=== PATIENT | female | born 2000 | race Native Hawaiian/Other Pacific Islander ===

== ENCOUNTER 2024-06-05 11:56 | Outpatient (AMB) | payer OTHER, SELFPAY ==
--- NOTE | 2024-06-05 11:57 | MHC.PC.OV ---
Vital Signs 06/05/24 11:58 Height 5 ft 2 in Weight 149 lb BMI 27.2 BP 122/70 Blood Pressure Location Lt brachial Position Sitting Pulse 95 Pulse Source Pulse Oximeter Pulse Oximetry (%) 97 Oxygen Delivery Method Room Air Intake Visit Reasons: est care/requesting pe Allergies amoxicillin Allergy (Intermediate, Verified 06/05/24 12:01) Hives peanut Allergy (Intermediate, Verified 06/05/24 12:01) Anaphylaxis Tobacco use date assessed: 06/05/24 Dental Screening Dental Screen Date: 06/05/24 Did you have a dental visit in the last 12 months?: Yes Did you have a dental problem in the last 6 months where you did not have access to dental care?: No Was dental information given to patient?: Patient has dentist HPI HPI Comments History of Present Illness Details 24-year-old female presents to establish care and have a physical exam. I previously saw her at [facility] years ago. 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 She is . She just started trying to conceive. She has a gynecology appointment in July. Today we reviewed ovulation test kits. I also recommended she start a vitamin. She endorses some fatigue, a little more so than usual for her. She has some trouble falling asleep, and she is going to try melatonin and magnesium. She is able to stay asleep. 2 maternal aunts had breast cancer in their 40s. Mother related to diabetes complications, but she also had some type of gastric cancer as did the patient's grandmother on her mother's side. Patient is referred to genetic counseling. Patient unsure when she last had Tdap. Deferred today. Patient reports having flu vaccine this season. She will sign a release for records. ROS: Constitutional: No unexplained weight loss, fever, chills, fatigue or night sweats. Eyes: No vision changes, blurry vision, double vision, eye pain, eye redness, eye discharge. ENT: No hearing loss, sneezing, congestion, runny nose or sore throat. Respiratory: No shortness of breath, cough or sputum production. Cardiovascular: No chest pain, chest pressure or chest discomfort. No palpitations or pedal edema. Gastrointestinal: No anorexia, nausea, vomiting or diarrhea. No abdominal pain or blood in stool. Genitourinary: No dysuria, hematuria, urinary frequency. Neurologic: No headache, dizziness, syncope, unilateral weakness, ataxia, numbness or tingling in the extremities. Musculoskeletal: No muscle pain, back pain, joint pain or swelling. Hematologic/Lymphatics: No bleeding or bruising. No painful lymph nodes. Skin: No rash or itching. Endocrine: No cold or heat intolerance. No polyuria or polydipsia. Psychiatric: No depression or anxiety. No SI/HI. Physical exam: Constitutional: Alert, in no distress. Head: Normocephalic. Eyes: Pupils are equal, round and reactive to light. Extraocular muscles intact. Ear, Nose and Throat: Canals clear. TMs normal. Normal nasal mucosa. No nasal discharge. No oral lesions. Neck: Supple, Full range of motion. No lymphadenopathy. No palpable thyroid masses. Respiratory: Clear to auscultation. Cardiovascular: S1 S2 regular. No murmurs. Gastrointestinal: Abdomen soft, non-tender, non-distended. Normal bowel sounds. No palpable masses. Neurologic: No focal neurological deficits. Symmetric patellar reflexes. Moves all extremities spontaneously. Sensation intact bilaterally. Skin: No rashes or lesions. Musculoskeletal: No gross deformities. Normal range of motion. Extremities: Warm and well perfused. No clubbing, cyanosis or edema. 3+ peripheral pulses bilaterally. Psychiatric: Normal mood and affect [facility] Medical History (Updated 06/05/24 @ 13:24 by CINDY Benito) Routine physical examination IBS (irritable colon syndrome) Fatigue Screening for cardiovascular condition Surgical History (Updated 06/05/24 @ 12:02 by Hannah Witt CMA) No pertinent past surgical history Family History (Updated 06/05/24 @ 12:06 by Hannah Witt CMA) Mother Diabetes Paternal Grandmother Breast cancer Maternal Aunt Breast cancer Social History (Updated 06/05/24 @ 12:02 by Hannah Witt CMA) Household Members: Spouse Housing: Apartment Alcohol intake: never Patient Tobacco Use Status: Never used Tobacco e-Cigarette/Vaping Use: Never Used Use of substances other than those prescribed or required for medical reasons: No service: No Current occupational status: employed Current occupation: Registration and finance Cognitive needs: No Hearing needs: No Vision needs: Yes Questionnaire PHQ-9 Over the last 2 weeks, how often have you been bothered by any of the following problems? 1. Little interest or pleasure in doing things: not at all 2. Feeling down, depressed, or hopeless: not at all 3. Trouble falling or staying asleep, or sleeping too much: not at all 4. Feeling tired or having little energy: not at all 5. Poor appetite or overeating: not at all 6. Feeling bad about yourself - or that you are a failure or have let yourself or your family down: not at all 7. Trouble concentrating on things, such as reading the newspaper or watching television: not at all 8. Moving or speaking so slowly that other people could have noticed. Or the opposite - being so fidgety or restless that you have been moving around a lot more than usual: not at all 9. Thoughts that you would be better off or of hurting yourself in some way: not at all Total score: 0 Depression Screening Interpretation: Negative Depression Screening Done: Yes 31249 - PHQ-9 Billing: Yes Source: Developed by Drs. Luis Carbajal, Heather Valiente, Trey Araujo and colleagues, with an educational ronnie from [employer]. Thrive Questionnaire Date Thrive assessed: 06/05/24 I am a: Patient What is your living situation today?: I have a steady place to live Within the past 12 months, did the food you bought not last and you didn't have the money to get more?: Never true Within the past 12 months, did you worry whether your food would run out before you got money to buy more?: Never true Do you have trouble paying for medicines?: No Do you have trouble getting transportation to medical appointments?: No Do you have trouble paying your heating and electricity bill?: No Do you have trouble taking care of your child, family member or friend?: No Do you have trouble with day-to-day activities such as bathing, preparing meals, shopping, managing finances, etc.?: No Are you currently unemployed and looking for a job?: No Are you interested in more education?: No THRIVE Score: 0 AUDIT C Alcohol Use Questionnaire (AUDIT-C) 1. How often do you have a drink containing alcohol?: Never 3. How often do you have six or more drinks on one occasion?: Never Total Score: 0 HI-7 AMB Questionnaire HI-7 Date HI - 7 assessed: 06/05/24 Feeling nervous, anxious, or on edge: 0 = Not at all Not being able to stop or control worryin = Not at all Worrying too much about different things: 0 = Not at all Trouble relaxin = Not at all Being so restless that it is hard to sit still: 0 = Not at all Becoming easily annoyed or irritable: 0 = Not at all Feeling afraid as if something awful might happen: 0 = Not at all Total HI-7 score (0-4 normal; 5-9 mild; 10-14 moderate; 15-21 severe): 0 Source: Developed by Drs. Luis Carbajal, Heather Valiente, Trey Araujo and colleagues, with an educational ronnie from [employer]. HI-7 Assessment Billing HI-7 Assessment Tool: HI-7 Assessment 25156 Physical exam (Primary Care) Vital Signs: Last Vital Signs Pulse 95 06/05/24 11:58 BP 122/70 06/05/24 11:58 Pulse Ox 97 06/05/24 11:58 Oxygen Delivery Method Room Air 06/05/24 11:58 BMI result Body Mass Index 27.2 Tobacco/Smoking Status: Tobacco use Status Tobacco use date assessed 06/05/24 06/05/24 12:06 Patient Tobacco Use Status Never used Tobacco 06/05/24 12:06 e-Cigarette/Vaping Use Never Used 06/05/24 12:06 PHQ-9: PHQ-9 Score PHQ-9: Total score 0 06/05/24 12:21 Depression Screening Interpretation: Negative Thrive Assessment: Date of Thrive Assessment Date Thrive assessed 06/05/24 06/05/24 12:06 Coding Level of Care Code New Pt Prev Care 18-39yr([id number] Diagnoses Routine physical examination Z00.00 Fatigue R53.83 Additional Codes HI-7 Assessment Billing - HI-7 Assessment Tool: HI-7 Assessment 66216 ([id number]) PHQ-9 - 65087 - PHQ-9 Billing: Yes ([id number]) Assessment & Plan Assessment & Plan (1) Routine physical examination: Code(s): Z00.00 - Encounter for general adult medical examination without abnormal findings Category: Medical Plan: Patient is seen today for a routine physical. As part of this visit we reviewed the following issues, which are considered and essential part of preventative health in this age group: - Breast Cancer screening - Annual Weight Analyst exam - Screening for colon cancer - Blood pressure screening annually - Cholesterol screening - Osteoporosis prevention including calcium/vitamin D intake, weight bearing exercise & smoking cessation - Nutritional and exercise counseling - Counseling of injury prevention including fire prevention, smoke alarms and seat belt usage - Screening for depression - Prevention of and/or testing for infectious diseases - Education about skin cancer - Recommendations about immunizations - Recommendation of an eye exam - Screening for substance abuse - Genetic cancer risk screening - referred (2) Fatigue: Code(s): R53.83 - Other fatigue Category: Medical Plan: Check labs. Plan F/u 1 year annual physical. Orders: Orders Comprehensive Met. Panel Today R53.83 - Other fatigue, Z13.6 - Encounter for screening for cardiovascular disorders Lipid Panel Today E78.5 - Hyperlipidemia, unspecified, R53.83 - Other fatigue, Z13.6 - Encounter for screening for cardiovascular disorders IRON PROFILE Today R53.83 - Other fatigue Ferritin Today R53.83 - Other fatigue TSH reflex Free T4 Today R53.83 - Other fatigue, Z13.6 - Encounter for screening for cardiovascular disorders Complete Blood Count Auto Diff Today R53.83 - Other fatigue, Z13.6 - Encounter for screening for cardiovascular disorders Vitamin D 25-OH (D2 and D3) Today M85.80 - Other specified disorders of bone density and structure, unspecified site, R53.83 - Other fatigue, Z13.6 - Encounter for screening for cardiovascular disorders
[2024-06-05 11:58] VITALS: BP 122/70; PULSE 95; O2SAT 97; BMI 27.2
== END 2024-06-05 12:55 | disposition home or self-care (01) ==
PROVIDERS: PCP Physician Assistant Medical; Visit Provider Physician Assistant Medical
DX: Z00.00 Encounter for general adult medical examination without abnormal findings (principal); R53.83 Other fatigue

== ENCOUNTER → 2024-06-05 11:56 | Outpatient (BNVA) | payer OTHER, SELFPAY | LOC: CF 06-06 09:55 | PROVIDERS: PCP Physician Assistant Medical; Visit Provider Physician Assistant Medical | DX: Z00.00 Encounter for general adult medical examination without abnormal findings (principal); R53.83 Other fatigue | CPT/HCPCS: 96127; 99385 ==

== ENCOUNTER 2024-06-06 09:56 | Outpatient (REF) | payer OTHER, SELFPAY ==
[2024-06-06 10:13] LABS: MANUAL DIFF FLAG NO
[2024-06-06 10:15] LABS: Basophils Absolute Auto 0.1 X10*3/uL (0.0-0.2); Basophils Percent Auto 1.4 % (0-2); Eosinophils Absolute Auto 1.1 X10*3/uL (0.0-0.4); Hematocrit 37.6 % (37.0-47.0); Hemoglobin 12.1 g/dl (12.0-16.0); Imm Gran Abs Auto 0.02 X10*3/uL (0.00-0.03); Imm Gran Pct Auto 0.3 % (0.0-0.4); Lymphocytes Absolute Auto 1.8 X10*3/uL (1.2-4.9); Lymphocytes Percent Auto 25.5 % (20-40); Mean Corpuscular HGB Conc 32.2 g/dl (31.0-35.0); Mean Corpuscular Hemoglobin 25.6 pg (27.0-33.0); Mean Corpuscular Volume 79.5 fL (80.0-98.0); Mean Platelet Volume 11.8 fL (9.4-12.3); Monocytes Absolute Auto 0.4 X10*3/uL (0.1-1.2); Monocytes Percent Auto 5.7 % (2-11); Neutrophils Absolute Auto 3.7 x10*3/uL (2.0-8.3); Neutrophils Percent Auto 52.1 % (45-73); Platelet Count 279 X10*3/uL (160-400); Red Blood Count 4.73 X10*6/uL (4.20-5.50)
[2024-06-06 10:59] LABS: Alanine Aminotransferase 17 U/L (0-31); Albumin Level 4.6 g/dL (3.5-5.0); Alkaline Phosphatase 32 U/L (39-117); Anion Gap 12 (12-20); Aspartate Amino Transferase 18 U/L (5-31); Bilirubin Total 0.4 mg/dL (0.0-1.0); Blood Urea Nitrogen 12 mg/dL (9-16); Calcium 9.3 mg/dL (8.4-10.2); Carbon Dioxide 25 mmol/L (22-29); Chloride 109 mmol/L (96-108); Cholesterol 110 mg/dL (<200); Estimated Glomerular Filt Rate > 60; Glucose Random 86 mg/dL (60-115); HDL Cholesterol 32 mg/dL (>40); Iron 82 mcg/dL (30-160); LDL Cholesterol Calculated 67 mg/dL (<100); Percent Iron Saturation 29 % (15-50); Potassium 3.9 mmol/L (3.3-5.1); Sodium 142 mmol/L (135-145); Total Iron Binding Capacity 284 mcg/dL (228-428); Total Protein 8.4 g/dL (6.5-8.0); Triglycerides 56 mg/dL (<150); Unsaturated Iron Binding 202 ug/dL
[2024-06-06 11:15] LABS: Ferritin 41 ng/mL (10-122); TSH reflex Free T4 1.93 uIU/mL (0.32-4.0)
[2024-06-10 16:24] LABS: Vitamin D 25-OH, D2 <4 ng/mL; Vitamin D 25-OH, D3 21 ng/mL; Vitamin D 25-OH, Total 21 ng/mL (30-100)
== END 2024-06-06 09:57 | disposition home or self-care (01) ==
LOC: HO.LAB 09:56
PROVIDERS: PCP Physician Assistant Medical; Visit Provider Physician Assistant Medical
DX: R53.83 Other fatigue (principal); Z13.6 Encounter for screening for cardiovascular disorders; M85.80 Other specified disorders of bone density and structure, unspecified site; E78.5 Hyperlipidemia, unspecified
CPT/HCPCS: 36415; 80053; 80061; 82306; 82728; 83540; 84443; 85025

== ENCOUNTER 2024-09-15 10:23 | Outpatient (REF) | payer OTHER, SELFPAY ==
[2024-09-15 10:34] LABS: MANUAL DIFF FLAG NO
[2024-09-15 12:08] LABS: Basophils Absolute Auto 0.1 X10*3/uL (0.0-0.2); Basophils Percent Auto 1.4 % (0-2); Eosinophils Absolute Auto 0.5 X10*3/uL (0.0-0.4); Eosinophils Percent Auto 7.2 % (0-4); Hematocrit 40.9 % (37.0-47.0); Hemoglobin 13.3 g/dl (12.0-16.0); Imm Gran Abs Auto 0.01 X10*3/uL (0.00-0.03); Imm Gran Pct Auto 0.1 % (0.0-0.4); Lymphocytes Absolute Auto 1.7 X10*3/uL (1.2-4.9); Lymphocytes Percent Auto 24.4 % (20-40); Mean Corpuscular HGB Conc 32.5 g/dl (31.0-35.0); Mean Corpuscular Hemoglobin 25.9 pg (27.0-33.0); Mean Corpuscular Volume 79.7 fL (80.0-98.0); Mean Platelet Volume 12.7 fL (9.4-12.3); Monocytes Absolute Auto 0.4 X10*3/uL (0.1-1.2); Monocytes Percent Auto 5.2 % (2-11); Neutrophils Absolute Auto 4.3 x10*3/uL (2.0-8.3); Neutrophils Percent Auto 61.7 % (45-73); Platelet Count 291 X10*3/uL (160-400); Red Blood Count 5.13 X10*6/uL (4.20-5.50); Red Cell Distribution Width 13.7 % (11.0-16.0); White Blood Count 6.9 X10*3/uL (4.8-10.8)
[2024-09-15 12:48] LABS: Alanine Aminotransferase 27 U/L (0-31); Alkaline Phosphatase 37 U/L (39-117); Anion Gap 9 (12-20); Aspartate Amino Transferase 22 U/L (5-31); Bilirubin Total 0.2 mg/dL (0.0-1.0); Blood Urea Nitrogen 12 mg/dL (9-16); Calcium 9.9 mg/dL (8.4-10.2); Carbon Dioxide 28 mmol/L (22-29); Chloride 108 mmol/L (96-108); Estimated Glomerular Filt Rate > 60; Glucose Random 92 mg/dL (60-115); Iron 74 mcg/dL (30-160); Percent Iron Saturation 25 % (15-50); Sodium 141 mmol/L (135-145); Total Iron Binding Capacity 293 mcg/dL (228-428); Total Protein 8.1 g/dL (6.5-8.0); Unsaturated Iron Binding 219 ug/dL
[2024-09-15 13:08] LABS: Ferritin 46 ng/mL (10-122); HCG Quantitative < 2 mIU/mL; TSH reflex Free T4 1.56 uIU/mL (0.32-4.0)
[2024-09-15 13:24] LABS: Folate 12.3 ng/mL (> or = 4.0); Vitamin B12 630 pg/mL (200-900)
[2024-09-19 14:49] LABS: Lyme Abs Screen <0.90 index
[2024-09-21 15:58] LABS: Vitamin D 25-OH, D2 <4 ng/mL; Vitamin D 25-OH, D3 32 ng/mL; Vitamin D 25-OH, Total 32 ng/mL (30-100)
== END 2024-09-15 10:24 | disposition home or self-care (01) ==
LOC: HO.LAB 10:23
PROVIDERS: PCP Physician Assistant Medical; Visit Provider Physician Assistant Medical
DX: N92.6 Irregular menstruation, unspecified (principal); D64.9 Anemia, unspecified; R53.83 Other fatigue; D72.10 Eosinophilia, unspecified; E55.9 Vitamin D deficiency, unspecified; M85.80 Other specified disorders of bone density and structure, unspecified site
CPT/HCPCS: 36415; 80053; 82306; 82607; 82728; 82746; 83540; 84443; 84702; 85025; 86617; 86618

== ENCOUNTER 2025-01-09 13:34 | Outpatient (REF) | payer OTHER, SELFPAY ==
[2025-01-14 14:58] LABS: Vitamin D 25-OH, D2 <4 ng/mL; Vitamin D 25-OH, D3 32 ng/mL; Vitamin D 25-OH, Total 32 ng/mL (30-100)
== END 2025-01-09 13:35 | disposition home or self-care (01) ==
LOC: HO.LAB 13:34
PROVIDERS: PCP Physician Assistant Medical; Visit Provider Physician Assistant Medical
DX: R53.83 Other fatigue (principal); E55.9 Vitamin D deficiency, unspecified; M85.80 Other specified disorders of bone density and structure, unspecified site
CPT/HCPCS: 36415; 82306; 84443

== ENCOUNTER 2025-02-01 15:44 | Outpatient (AMB) | payer OTHER, SELFPAY ==
--- NOTE | 2025-02-01 15:48 | A.OFFPC_ITS ---
Vital Signs 02/01/25 15:52 Height 5 ft 2 in Weight 152 lb 4 oz BMI 27.8 BP 114/68 Blood Pressure Location Rt brachial Position Sitting Respiration 14 Pulse 113 H Pulse Source Pulse Oximeter Temp 98.3 F Temp Source Temporal Artery Scan Pulse Oximetry (%) 95 Oxygen Delivery Method Room Air Intake Visit Reasons: [facility] paperwork Intake Note: Abbey presents in the office today to discuss [employer] Paperwork. Allergies amoxicillin Allergy (Intermediate, Verified 02/01/25 15:49) Hives peanut Allergy (Intermediate, Verified 02/01/25 15:49) Anaphylaxis Medication List - Last Reconciled 02/01/25 by CINYD Benito albuterol sulfate 90 mcg/actuation 2 inhalations inhalation .every 4 hours PRN 30 days cholecalciferol (vitamin D3) 25 mcg PO DAILY epinephrine (EpiPen) 0.3 mg (0.3 mL) IM Q10M PRN fexofenadine 180 mg PO DAILY sertraline 50 mg PO .evening Tobacco use date assessed: 02/01/25 Dental Screening Dental Screen Date: 02/01/25 Did you have a dental visit in the last 12 months?: Yes Did you have a dental problem in the last 6 months where you did not have access to dental care?: No Was dental information given to patient?: Patient has dentist HPI HPI Comments History of Present Illness Details 24-year-old female presents for forms, a nxiety, hives. Hives - more than 1 month - daily or nearly daily symptoms - associated with itching - hives come and go all over the body in cluding the face - Moved to a new apt and hives started a week later - patient questions underlying stress as a trigger - Allergy to peanuts- no known exposures . Needs epipen refilled - No recent illness - Lona alleviates symptoms - Denies angioedema, anaphylaxis Anxiety - started after her mother f rom diabetes complication several years ago - She has used sick time for flares - Impacts focus, sleep, energy, work - She wants to try anxiety medication - needs fmla forms done for work - christi tration at [facility] ED Patient reports exercise induced wheezing and cough and would dickson an inhaler. TSH normal. ROS: Constitutional: No unexplained weight loss, fever, chills or night sweats. Eyes: No vision changes, blurry vision, double vision, eye pain, eye redness, eye discharge. ENT: No hearing loss, sneezing, congestion, runny nose or sore throat. Respiratory: No shortness of breath or sputum production. Cardiovascular: No chest pain Hematologic/Lymphatics: No bleeding or bruising. No painful lymph nodes. Skin: see HPI Endocrine: No cold or heat intolerance. No polyuria or polydipsia. Psychiatric: No depression. No SI/HI. Physical exam: Constitutional: Alert, in no distress. Eyes: Pupils are equal, round and reactive to light. Extraocular muscles intact. Ear, Nose and Throat: Canals clear. TMs normal. Normal nasal mucosa. No nasal discharge. No oral lesions. Neck: Supple, Full range of motion. No lymphadenopathy. No palpable thyroid masses. Respiratory: Clear to auscultation. Cardiovascular: S1 S2 regular. No murmurs. Skin: No rashes or lesions. Extremities: Warm and well perfused. No clubbing, cyanosis or edema. Psychiatric: Normal mood and affect [facility] Medical History (Updated 02/01/25 @ 21:14 by CINDY Benito) Exercise-induced asthma Chronic urticaria Anxiety Vitamin D deficiency Seasonal allergic rhinitis Eczema Eosinophilia Family history of breast cancer Routine physical examination IBS (irritable colon syndrome) Fatigue Screening for cardiovascular condition Surgical History (Updated 06/05/24 @ 12:02 by Hannah Witt [facility]) No pertinent past surgical history Family History (Updated 02/01/25 @ 15:52 by Sandra Keys CMA) Mother Diabetes Cancer Paternal Grandmother Breast cancer Maternal Aunt Breast cancer FH: mental illness Depression with anxiety Paternal Grandfather Substance abuse Alcoholism Social History (Updated 02/01/25 @ 15:52 by Sandra Keys CMA) Household Members: Spouse Housing: Apartment Alcohol intake: never Patient Tobacco Use Status: Never used Tobacco e-Cigarette/Vaping Use: Never Used Second Hand Smoke Exposure: No service: No Current occupational status: employed Current occupation: Registration and finance Cognitive needs: No Hearing needs: No Vision needs: Yes Questionnaire Thrive Questionnaire Date Thrive assessed: 06/05/24 I am a: Patient What is your living situation today?: I have a steady place to live Within the past 12 months, did the food you bought not last and you didn't have the money to get more?: Never true Within the past 12 months, did you worry whether your food would run out before you got money to buy more?: Never true Do you have trouble paying for medicines?: No Do you have trouble getting transportation to medical appointments?: No Do you have trouble paying your heating and electricity bill?: No Do you have trouble taking care of your child, family member or friend?: No Do you have trouble with day-to-day activities such as bathing, preparing meals, shopping, managing finances, etc.?: No Are you currently unemployed and looking for a job?: No Are you interested in more education?: No Please select the resources that you would like help with: None Currently or been in a relationship where the following occur: No concerns reported THRIVE Score: 0 AUDIT C Alcohol Use Questionnaire (AUDIT-C) 3. How often do you have six or more drinks on one occasion?: Never Total Score: 0 HI-7 AMB Questionnaire HI-7 Date HI - 7 assessed: 06/05/24 Source: Developed by Drs. Luis Carbajal, Heather Valiente, Trey Araujo and colleagues, with an educational ronnie from [employer]. Physical exam (Primary Care) Vital Signs: Last Vital Signs Temp 98.3 F 02/01/25 15:52 Pulse 113 H 02/01/25 15:52 Resp 14 02/01/25 15:52 BP 114/68 02/01/25 15:52 Pulse Ox 95 02/01/25 15:52 Oxygen Delivery Method Room Air 02/01/25 15:52 BMI result Body Mass Index 27.8 Tobacco/Smoking Status: Tobacco use Status Tobacco use date assessed 02/01/25 02/01/25 15:55 Patient Tobacco Use Status Never used Tobacco 02/01/25 15:52 e-Cigarette/Vaping Use Never Used 02/01/25 15:52 Thrive Assessment: Date of Thrive Assessment Date Thrive assessed 06/05/24 02/01/25 15:50 Currently or been in a relationship where the following occur: No concerns reported Coding Level of Care Code Est Pt Level 4 (12843) Complex EM visit Add On G2211 Diagnoses Anxiety F41.9 Exercise-induced asthma J45.990 Chronic urticaria L50.8 Assessment & Plan Assessment & Plan (1) Anxiety: Code(s): F41.9 - Anxiety disorder, unspecified Category: Medical Plan: Recommended referral to behavioral health. Defers today. Forms completed. Trial of Zoloft. Side effects and black box warning reviewed. Do not stop abruptly. (2) Exercise-induced asthma: Code(s): J45.990 - Exercise induced bronchospasm Category: Medical Plan: Albuterol as needed. (3) Chronic urticaria: Code(s): L50.8 - Other urticaria Category: Medical Plan: Allegrea 180 mg daily. Stay on this for at least 1 month. If hive free after that she can try stopping it. Reviewed differential. Refer to allergy and immunology. No angioedema but patient does have epipen for peanut allergy. Orders: Referrals Allergy & Immunology Referral L50.8 - Other urticaria Medications: New sertraline Take 1/2 tab po for 1 week and then increase to 1 tab daily. 50 mg PO .evening 90 tabs 0RF albuterol sulfate 90 mcg/actuation 2 inhalations inhalation .every 4 hours PRN 8.5 grams 0RF shortness of breath or wheezing 30 days epinephrine (EpiPen) for 2 doses 0.3 mg (0.3 mL) IM Q10M PRN 2 ea 1RF anaphylaxis fexofenadine 180 mg PO DAILY 90 tabs 0RF
[2025-02-01 15:52] VITALS: BP 114/68; PULSE 113; RESP 14; TEMP 36.8; O2SAT 95; BMI 27.8
== END 2025-02-01 16:35 | disposition home or self-care (01) ==
LOC: HO.HMCFM 15:45
PROVIDERS: PCP Physician Assistant Medical; Visit Provider Physician Assistant Medical
DX: F41.9 Anxiety disorder, unspecified (principal); J45.990 Exercise induced bronchospasm; L50.8 Other urticaria

== ENCOUNTER → 2025-02-01 15:44 | Outpatient (BNVA) | payer OTHER, SELFPAY | PROVIDERS: PCP Physician Assistant Medical; Visit Provider Physician Assistant Medical | DX: F41.9 Anxiety disorder, unspecified (principal); J45.990 Exercise induced bronchospasm; L50.8 Other urticaria | CPT/HCPCS: 99212 ==

== ENCOUNTER 2025-03-19 14:35 | Outpatient (AMB) | payer OTHER, SELFPAY ==
--- NOTE | 2025-03-19 14:52 | MHC.OFFVIS ---
Intake Visit Reasons: anxiety med check Intake Note: Abbey presents in the office today for a medication check in. Allergies amoxicillin Allergy (Intermediate, Verified 02/01/25 15:49) Hives peanut Allergy (Intermediate, Verified 02/01/25 15:49) Anaphylaxis HPI Comments Details: 24-year-old female presents for forms, anxiety, hives. Hives - more than 1 month - daily or nearly daily symptoms - associated with itching - hives come and go all over the body including the face - Moved to a new apt and hives started a week later - patient questions underlying stress as a trigger - Allergy to peanuts- no known exposures. 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 TSH normal. ROS: Constitutional: No unexplained weight loss, fever, chills or night sweats. Eyes: No vision changes, blurry vision, double vision, eye pain, eye redness, eye discharge. ENT: No hearing loss, sneezing, congestion, runny nose or sore throat. Respiratory: No shortness of breath or sputum production. Cardiovascular: No chest pain Hematologic/Lymphatics: No bleeding or bruising. No painful lymph nodes. Skin: see HPI Endocrine: No cold or heat intolerance. No polyuria or polydipsia. Psychiatric: No depression. No SI/HI. Physical exam: Constitutional: Alert, in no distress. Eyes: Pupils are equal, round and reactive to light. Extraocular muscles intact. Ear, Nose and Throat: Canals clear. TMs normal. Normal nasal mucosa. No nasal discharge. No oral lesions. Neck: Supple, Full range of motion. No lymphadenopathy. No palpable thyroid masses. Respiratory: Clear to auscultation. Cardiovascular: S1 S2 regular. No murmurs. Skin: No rashes or lesions. Extremities: Warm and well perfused. No clubbing, cyanosis or edema. Psychiatric: Normal mood and affect [facility] Medical History (Updated 02/01/25 @ 21:14 by CINDY Benito) Exercise-induced asthma Chronic urticaria Anxiety Vitamin D deficiency Seasonal allergic rhinitis Eczema Eosinophilia Family history of breast cancer Routine physical examination IBS (irritable colon syndrome) Fatigue Screening for cardiovascular condition Surgical History (Updated 06/05/24 @ 12:02 by Hannah Witt [facility]) No pertinent past surgical history Family History (Updated 02/01/25 @ 15:52 by Sandra Keys CMA) Mother Diabetes Cancer Paternal Grandmother Breast cancer Maternal Aunt Breast cancer FH: mental illness Depression with anxiety Paternal Grandfather Substance abuse Alcoholism Social History (Updated 02/01/25 @ 15:52 by Sandra Keys CMA) Household Members: Spouse Housing: Apartment Alcohol intake: never Patient Tobacco Use Status: Never used Tobacco e-Cigarette/Vaping Use: Never Used Second Hand Smoke Exposure: No service: No Current occupational status: employed Current occupation: Registration and finance Cognitive needs: No Hearing needs: No Vision needs: Yes Assessment & Plan Assessment & Plan (1) Anxiety: Code(s): F41.9 - Anxiety disorder, unspecified Category: Medical Plan: Recommended referral to behavioral health. Defers today. Forms completed. Trial of Zoloft. Side effects and black box warning reviewed. Do not stop abruptly. (2) Exercise-induced asthma: Code(s): J45.990 - Exercise induced bronchospasm Category: Medical Plan: Albuterol as needed. (3) Chronic urticaria: Code(s): L50.8 - Other urticaria Category: Medical Plan: Allegrea 180 mg daily. Stay on this for at least 1 month. If hive free after that she can try stopping it. Reviewed differential. Refer to allergy and immunology. No angioedema but patient does have epipen for peanut allergy. Coding Diagnoses Anxiety F41.9 Exercise-induced asthma J45.990 Chronic urticaria L50.8
--- NOTE | 2025-03-19 14:55 | MHC.PC.OV ---
Vital Signs 03/19/25 14:57 Height 5 ft 2 in Weight 154 lb 8 oz BMI 28.3 BP 102/60 Blood Pressure Location Rt brachial Position Sitting Respiration 15 Pulse 94 Pulse Source Pulse Oximeter Temp 98.7 F Temp Source Temporal Artery Scan Pulse Oximetry (%) 98 Oxygen Delivery Method Room Air Intake Visit Reasons: anxiety med check Intake Note: Abbey presents in the office today for a medication check in. 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 Is last menstrual period known: Yes Last menstrual period: 02/14/25 Post menopausal: No Patient : No Allergies amoxicillin Allergy (Intermediate, Verified 03/19/25 14:56) Hives peanut Allergy (Intermediate, Verified 03/19/25 14:56) Anaphylaxis cat dander Allergy (Mild, Verified 03/19/25 15:06) hives mold Allergy (Mild, Verified 03/19/25 15:06) hives Tobacco use date assessed: 03/19/25 Dental Screening Dental Screen Date: 03/19/25 Did you have a dental visit in the last 12 months?: Yes Did you have a dental problem in the last 6 months where you did not have access to dental care?: No Was dental information given to patient?: Patient has dentist HPI HPI Comments History of Present Illness Details 24-year-old female recently evaluated for hives and anxiety presents for follow up. Anxiety is doing better since starting sertraline 50 mg. She would like to stay on this dose. Anxiety started after her mother from diabetes complications several years ago. She had used sick time for flares so she does have FMLA now. When she is anxious it impacts her focus, sleep and energy level. She saw Allergy and immunology, and she tested positive for mold allergy. After this she realized there was mold and different areas of her apartment. She is going to speak to the manage her about this, and they are cleaning it. She has not needed to take antihistamines, and she only is getting an occasional high now that they have made some changes. ROS: Constitutional: No unexplained weight loss, fever, chills or night sweats. Skin: see HPI Psychiatric: No depression. No SI/HI. Physical exam: Constitutional: Alert, in no distress. Extremities: Warm and well perfused. No clubbing, cyanosis or edema. Psychiatric: Normal mood and affect [facility] Medical History (Updated 02/01/25 @ 21:14 by CINDY Benito) Exercise-induced asthma Chronic urticaria Anxiety Vitamin D deficiency Seasonal allergic rhinitis Eczema Eosinophilia Family history of breast cancer Routine physical examination IBS (irritable colon syndrome) Fatigue Screening for cardiovascular condition Surgical History (Updated 06/05/24 @ 12:02 by Hannah Witt [facility]) No pertinent past surgical history Family History Mother Diabetes Cancer Paternal Grandmother Breast cancer Maternal Aunt Breast cancer FH: mental illness Depression with anxiety Paternal Grandfather Substance abuse Alcoholism Social History (Updated 03/19/25 @ 14:57 by Sandra Keys [facility]) Household Members: Spouse Housing: Apartment Alcohol intake: never Patient Tobacco Use Status: Never used Tobacco e-Cigarette/Vaping Use: Never Used Second Hand Smoke Exposure: No service: No Current occupational status: employed Current occupation: Registration and finance Cognitive needs: No Hearing needs: No Vision needs: Yes Female Reproductive History Menstrual Date of last menstrual period: 02/14/25 Questionnaire Thrive Questionnaire Date Thrive assessed: 06/05/24 I am a: Patient What is your living situation today?: I have a steady place to live Within the past 12 months, did the food you bought not last and you didn't have the money to get more?: Never true Within the past 12 months, did you worry whether your food would run out before you got money to buy more?: Never true Do you have trouble paying for medicines?: No Do you have trouble getting transportation to medical appointments?: No Do you have trouble paying your heating and electricity bill?: No Do you have trouble taking care of your child, family member or friend?: No Do you have trouble with day-to-day activities such as bathing, preparing meals, shopping, managing finances, etc.?: No Are you currently unemployed and looking for a job?: No Are you interested in more education?: No Please select the resources that you would like help with: None Currently or been in a relationship where the following occur: No concerns reported THRIVE Score: 0 HI-7 AMB Questionnaire HI-7 Date HI - 7 assessed: 06/05/24 Source: Developed by Drs. Luis Carbajal, Heather B.Trey Hoffman and colleagues, with an educational ronnie from [employer] Physical exam (Primary Care) Vital Signs: Last Vital Signs Temp 98.7 F 03/19/25 14:57 Pulse 94 03/19/25 14:57 Resp 15 03/19/25 14:57 BP 102/60 03/19/25 14:57 Pulse Ox 98 03/19/25 14:57 Oxygen Delivery Method Room Air 03/19/25 14:57 BMI result Body Mass Index 28.3 Tobacco/Smoking Status: Tobacco use Status Tobacco use date assessed 03/19/25 03/19/25 15:01 Patient Tobacco Use Status Never used Tobacco 03/19/25 15:01 e-Cigarette/Vaping Use Never Used 03/19/25 15:01 Thrive Assessment: Date of Thrive Assessment Date Thrive assessed 06/05/24 03/19/25 15:01 Currently or been in a relationship where the following occur: No concerns reported Coding Level of Care Code Est Pt Level 3 (41556) Complex visit Add On G2211 Diagnoses Anxiety F41.9 Exercise-induced asthma J45.990 Chronic urticaria L50.8 Assessment & Plan Assessment & Plan (1) Anxiety: Code(s): F41.9 - Anxiety disorder, unspecified Category: Medical Plan: She previously deferred a referral for therapy. She has a FMLA for anxiety. Continue sertraline 50 mg daily. Reviewed black box warning. (2) Exercise-induced asthma: Code(s): J45.990 - Exercise induced bronchospasm Category: Medical Plan: Albuterol as needed. (3) Chronic urticaria: Code(s): L50.8 - Other urticaria Category: Medical Plan: Allergy and evaluation revealed mold allergy. She is going to speak to her geothermal operations manager about the situation in her apartment. They have cleaned it, and this has improved. She can continue Lona as needed. Plan Follow up in 3 months. Medications: Changed From sertraline Take 1/2 tab po for 1 week and then increase to 1 tab daily. 50 mg PO .evening 90 tabs 0RF To sertraline 50 mg PO .evening 90 tabs 1RF
[2025-03-19 14:57] VITALS: BP 102/60; PULSE 94; RESP 15; TEMP 37.1; O2SAT 98; BMI 28.3
== END 2025-03-19 15:23 | disposition home or self-care (01) ==
LOC: HO.HMCFM 14:36
PROVIDERS: PCP Physician Assistant Medical; Visit Provider Physician Assistant Medical
DX: F41.9 Anxiety disorder, unspecified (principal); J45.990 Exercise induced bronchospasm; L50.8 Other urticaria

== ENCOUNTER → 2025-03-19 14:35 | Outpatient (BNVA) | payer OTHER, SELFPAY | PROVIDERS: PCP Physician Assistant Medical; Visit Provider Physician Assistant Medical | DX: F41.9 Anxiety disorder, unspecified (principal); J45.990 Exercise induced bronchospasm; L50.8 Other urticaria; Z79.899 Other long term (current) drug therapy | CPT/HCPCS: 99212 ==